=== PATIENT | female | born 1990 | race African-American/Black ===

== ENCOUNTER 2018-01-15 17:48 | Emergency (ER) | payer MEDICAID ==
[~2018-01-15] VITALS: Ht 167.6 cm; Wt 68.0 kg
[~2018-01-15 17:48] MED LIST: CILOXAN 0.3% O1 DROP BOTH EYES; NKM; NORCO 5-325 TA1 EACH ORAL
[2018-01-15 18:01] VITALS: BP 116/75
[2018-01-15 18:11] VITALS: BP 116/75
[2018-01-15] MEDS ORDERED: OCUFLOX5 ML LEFT EYE (18:23)
[2018-01-15] MEDS ORDERED: CLINDAMYCIN HC300 MG ORAL (18:23)
--- NOTE | 2018-01-15 19:34 | Emergency Room Report ---
History of Present Illness General Chief Complaint: General Complaint Source: Patient Present Illness HPI 27-year-old female presents ED for evaluation. Notes rash to her face 2 days. States she has history of acne and is "breaking out". states that is painful , 9 out of 10, dull, nonradiating. Also notes discharge in her left eye. Eyes are very itchy. Notes yellowish discharge. Denies any photophobia or blurry vision. Denies fevers or chills. No other aggravating relieving factors. Denies any other associated symptoms Allergies: Coded Allergies: No Known Allergies (Unverified , 10/14/13) Patient History Past Medical History: asthma Past Surgical History: none Pertinent Family History: none Social History: Denies: smoking, alcohol use, drug use Last Menstrual Period: 01/06/18 Now: No Immunizations: UTD Reviewed Nursing Documentation: PMH: Agreed; PSxH: Agreed Nursing Documentation-PMH Hx Asthma: Yes Review of Systems All Other Systems: negative except mentioned in HPI Physical Exam Vital Signs Date Time Temp Pulse Resp B/P (MAP) Pulse Ox O2 Delivery O2 Flow Rate FiO2 01/15/18 17:51 98.2 92 19 116/79 98 Room Air 98.2 Sp02 EP Interpretation: reviewed, normal General Appearance: no apparent distress, alert, GCS 15, non-toxic Head: normocephalic Eyes: right eye normal inspection, right eye PERRL; left eye other - discharge L eye ENT: normal ENT inspection Neck: normal inspection Respiratory: normal inspection Cardiovascular #1: normal inspection Gastrointestinal: normal inspection Rectal: deferred Genitourinary: no CVA tenderness Musculoskeletal: normal inspection Neurologic: alert, oriented x3, responsive, motor strength/tone normal, sensory intact, speech normal Psychiatric: normal inspection Skin: rash - pustular acne noted to face. healing scars noted to face Lymphatic: normal inspection Medical Decision Making Diagnostic Impression: Primary Impression: Acne Qualified Codes: L70.9 - Acne, unspecified Additional Impression: conjunctivitis ER Course Hospital Course 27-year-old female presents to ED with rash to face, L eye pain/discharge Differential diagnoses include: Cellulitis, dermatitis, insect bite, abscess Clinical course Patient placed on stretcher. After initial history, physical exam reveals a young female in no acute distress. On exam there is diffuse pustular acne noted to face. visible scarring noted. there is visible discharge from L eye. no photophobia no change in visual acuity Discussed findings with patient. We will prescribe ophthalmic antibiotics for the conjunctivitis. I will also prescribe clindamycin for her acne. Patient has not seen dermatology in the past I do recommend dermatology as outpatient Diagnosis - acne, conjunctivitis stable and discharged to home with prescription for Clindamycin, Ocuflox. Instructed to followup with PMD/dermatology. Instructed return to ED if symptoms recur or worsen Last Vital Signs Date Time Temp Pulse Resp B/P (MAP) Pulse Ox O2 Delivery O2 Flow Rate FiO2 01/15/18 18:11 98.2 92 19 116/75 98 Room Air 98.2 Status: improved Disposition: HOME, SELF-CARE Condition: Stable Scripts Ofloxacin (OCUFLOX) 5 Ml Drops 1 DROP LEFT EYE QID for 7 Days, ML Prov: Magdiel Hagan MD 01/15/18 Clindamycin Hcl (CLINDAMYCIN HCL) 300 Mg Capsule 300 MG ORAL THREE TIMES A DAY, #21 CAP Prov: Magdiel Hagan MD 01/15/18 Patient Instructions: Acne, [id number] Magdiel Hagan MD Jan 15, 2018 19:34
== END 2018-01-15 18:12 | disposition home or self-care (01) ==
LOC: EMR 18:04
DX: L70.9 Acne, unspecified (principal); H10.9 Unspecified conjunctivitis; J45.909 Unspecified asthma, uncomplicated
CPT/HCPCS: 99284

== ENCOUNTER 2020-10-04 05:40 | Emergency (ER) | payer MEDICAID ==
[~2020-10-04] VITALS: Ht 167.6 cm; Wt 68.0 kg
[~2020-10-04 05:40] MED LIST changes: +CLINDAMYCIN HC300 MG ORAL; +OCUFLOX5 ML LEFT EYE
[2020-10-04 05:55] VITALS: BP 146/82
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
--- NOTE | 2020-10-04 06:10 | NUR ---
ED Nurse Note: windmill technician at bedside
--- NOTE | 2020-10-04 06:30 | Diagnostic Imaging Report ---
EXAM: XR Right Hand Complete, 3 or More Views CLINICAL HISTORY: Injury TECHNIQUE: Frontal, lateral and oblique views of the right hand. COMPARISON: No relevant prior studies available. FINDINGS: Bones/joints: No acute fracture. No dislocation. Soft tissues: Unremarkable. No radiopaque foreign body. IMPRESSION: No evidence of acute osseous abnormality.
[2020-10-04] MEDS ORDERED: CEPHALEXIN500 MG ORAL (08:25)
[2020-10-04] MEDS ORDERED: ACETAMINOPHEN-1 EAC1 ORAL (08:25)
[2020-10-04 08:28] VITALS: BP 133/74
--- NOTE | 2020-10-04 08:28 | NUR ---
ED Nurse Note: Pt cleared by ERMD for discharge. DC instructions/prescription was given and explained to pt and verbalized understanding of teachings. All medical deviecs such as ID band removed. Pt is AAO x4, ambulatory and left with all personal belongings.
--- NOTE | 2020-10-04 10:17 | Emergency Room Report ---
History of Present Illness General Chief Complaint: Upper Extremity Injury Source: Patient Present Illness HPI 29-year-old female presents for evaluation. States that she slammed her right thumb in a car door a few days ago. Did not come to the hospital at the time but the pain got worse. Throbbing, 10 out of 10, nonradiating. Is wearing fake nails. Denies any other injuries. No other aggravating relieving factors. 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 COVID-19 Screening: Negative COVID-19 COVID-19 Testing Source: unknown Patient History Past Medical History: asthma Past Surgical History: none Pertinent Family History: none Social History: Denies: smoking, alcohol use, drug use Now: No Immunizations: UTD Reviewed Nursing Documentation: PMH: Agreed; PSxH: Agreed Nursing Documentation-PMH Past Medical History: No History, Except For Hx Asthma: Yes Review of Systems All Other Systems: negative except mentioned in HPI Physical Exam Vital Signs Date Time Temp Pulse Resp B/P (MAP) Pulse Ox O2 Delivery O2 Flow Rate FiO2 10/04/20 05:49 98.1 98 18 146/82 (103) 100 Room Air Sp02 EP Interpretation: reviewed, normal General Appearance: no apparent distress, alert, GCS 15, non-toxic Head: normocephalic, atraumatic Eyes: bilateral eye normal inspection, bilateral eye PERRL ENT: hearing grossly normal, normal pharynx, no angioedema, normal voice Neck: full range of motion, supple/symm/no masses Respiratory: chest non-tender, lungs clear, normal breath sounds, speaking full sentences Cardiovascular #1: regular rate, rhythm, no edema Cardiovascular #2: 2+ carotid (R), 2+ carotid (L), 2+ radial (R), 2+ radial (L), 2+ dorsalis pedis (R), 2+ dorsalis pedis (L) Gastrointestinal: normal bowel sounds, non tender, soft, non-distended, no guarding, no rebound Rectal: deferred Genitourinary: normal inspection, no CVA tenderness Musculoskeletal: back normal, normal range of motion, gait/station normal, swelling - distal R thumb. purulent discharge from nail Neurologic: alert, motor strength/tone normal, oriented x3, sensory intact, responsive, speech normal Psychiatric: judgement/insight normal, memory normal, mood/affect normal, no suicidal/homicidal ideation Reflexes: 3+ bicep (R), 3+ bicep (L), 3+ tricep (R), 3+ tricep (L), 3+ knee (R), 3+ knee (L) Lymphatic: no adenopathy Procedures Additional Procedure Procedure Narrative Subungual hematoma Patient placed on stretcher. Foot is draped/prepped in sterile fashion. I insert the cautery directly into the nail bed until no further ressistance is met and purulent discharge is released. I then apply pressure, until all the discharge is released, causing relief in pressure to the nailbed. D ressing/splint applied. Patient tolerated procedure without complication Medical Decision Making Diagnostic Impression: Primary Impression: Abscess of finger Qualified Codes: L02.511 - Cutaneous abscess of right hand ER Course Hospital Course 29-year-old F presents to ED s/p swelling R thumb s/p slammed on car door Clinical course Patient placed on stretcher. After initial history and physical I ordered pain medications + XRAY XRAY no acute fracture/dislocation Patient was able to remove her acrylic nails and some purulent discharge was coming from the base of the nailbed. Using cautery device I was able to make a hole in the nail bed and relieve some additional purulent discharge. Patient states pain is much improved. splint/dressing applied. Will discharge home with antibiotics. Safe for discharge with close outpatient follow-up. I will provide referrals Diagnosis - abscess of finger Stable and discharged to home with prescription for tylenol #3, Keflex. wound Care instructions given. Followup with PMD. Return to ED if any signs of infection develop Other X-Ray Diagnostic Results Other X-Ray Diagnostic Results : X-Ray ordered: R hand # of Views/Limited Vs Complete: 3 View Indication: Pain EP Interpretation: Yes Interpretation: no dislocation, no soft tissue swelling, no fractures Impression: No acute disease Electronically Signed by: Electronically signed by Magdiel Hagan MD Last Vital Signs Date Time Temp Pulse Resp B/P (MAP) Pulse Ox O2 Delivery O2 Flow Rate FiO2 10/04/20 08:28 98.1 78 19 133/74 99 Room Air Status: improved Disposition: HOME, SELF-CARE Condition: Stable Scripts Acetaminophen With Codeine (T#3) (TYLENOL #3 TAB*) Y Tab 1 TAB ORAL Q8H PRN for For Pain, #20 TAB Prov: Magdiel Hagan MD 10/04/20 Cephalexin* (KEFLEX*) 500 Mg Capsule 500 MG ORAL EVERY 6 HOURS, #28 CAP Prov: Magdiel Hagan MD 10/04/20 Patient Instructions: Abscess, [id number] Magdiel Hagan MD Oct 04, 2020 10:17
== END 2020-10-04 08:28 | disposition home or self-care (01) ==
LOC: EMR 06:38
DX: L02.511 Cutaneous abscess of right hand (principal); J45.909 Unspecified asthma, uncomplicated
CPT/HCPCS: 99283